=== PATIENT | female | born 1995 | race African-American/Black ===

== ENCOUNTER → 2016-11-19 | Outpatient (REF) | payer OTHER | LOC: M LAB REF 16:27 | PROVIDERS: ATTEND Physician Assistant | DX: J02.9 Acute pharyngitis, unspecified (principal) ==

== ENCOUNTER → 2016-12-03 | Outpatient (REF) | payer SELFPAY | LOC: M LAB REF 14:56 | PROVIDERS: ATTEND Physician Assistant | DX: Z00.00 Encounter for general adult medical examination without abnormal findings (principal) ==

== ENCOUNTER 2017-09-04 08:41 | Emergency (ER) | payer MEDICAID, SELFPAY ==
[~2017-09-04] VITALS: Ht 162.6 cm; Wt 57.9 kg
[2017-09-04 08:41] VITALS: BP 128/62
[2017-09-04] MEDS ORDERED: [UNRECOGNIZED DRUG - CODE] SL (08:51)
[2017-09-04] MEDS ORDERED: MUCI600T37 PO (09:54)
[2017-09-04] MEDS ORDERED: MUCI1TAB16 PO (09:54)
== END 2017-09-04 10:13 | disposition home or self-care (01) ==
LOC: M ED 08:41
DX: J06.9 Acute upper respiratory infection, unspecified (principal); N91.5 Oligomenorrhea, unspecified; Z98.890 Other specified postprocedural states; Z92.0 Personal history of contraception

== ENCOUNTER 2017-09-22 13:34 | Emergency (ER) | payer OTHER, SELFPAY ==
[~2017-09-22] VITALS: Ht 162.6 cm; Wt 54.5 kg
[~2017-09-22 13:34] MED LIST: MUCI1TAB16 PO; MUCI600T37 PO; [UNRECOGNIZED DRUG - CODE] SL
[2017-09-22 14:07] LABS: MEAN CORPUSCULAR HEMOGLOBIN 29.3 pg (27.0-33.0); MEAN CORPUSCULAR HGB CONC 33.2 g/dl (32.0-36.5); MEAN CORPUSCULAR VOLUME 88.2 fl (80.0-96.0); PLATELET COUNT, AUTOMATED 242 10^3/uL (150-450); RED CELL DISTRIBUTION WIDTH 11.8 % (11.5-14.5); WHITE BLOOD COUNT 6.8 10^3/uL (4.0-10.0)
--- NOTE | 2017-09-22 14:57 | REP ---
First trimester OB ultrasound and endovaginal probe OB ultrasound: 09/22/2017. Clinical history: First trimester , bleeding. I do not have hCG results available. Transabdominal and endovaginal probes were utilized. Bladder was empty and cannot be measured. Uterus anteverted measuring 8.7 x 4.5 x 5.8 cm. Both transabdominal and endovaginal probes show a suspected gestational sac by mean sac diameter she would be 5 weeks 4 days. There is no yolk sac or pole visible. I do not see a definite subchorionic bleed. Right ovary is 2.9 x 2.5 x 1.4 cm with a 1.6 x 1.5 cm complex follicle or hemorrhagic corpus luteum. Doppler tracing shows resistive index 0.55. The left ovary is 2.7 x 1.9 x 1.8 cm. It has a Doppler tracing with resistive index of 0.46 and no mass. There is no free fluid in the pelvis. Impression: 1. A possible gestational sac seen in the fundus and by measurement it would be 5 weeks 4 days gestational age. There is no yolk sac or pole visible at this time. No subchorionic bleed. No free fluid. 2. Findings may reflect a blighted ovum, early IUP where the fetus may not yet be visible and the possibility of an ectopic cannot be entirely excluded. 3. There is a complex or hemorrhagic follicle/hemorrhagic corpus luteum cyst on the right 1.6 x 1.5 cm. 4. Both ovaries show Doppler flow, no torsion. Signed by Juvencio Grimes MD 09/22/2017 07:41 P
[2017-09-22 15:50] VITALS: BP 101/66
== END 2017-09-22 15:54 | disposition home or self-care (01) ==
LOC: M ED 13:34
DX: O20.0 Threatened abortion (principal); Z3A.01 Less than 8 weeks gestation of pregnancy

== ENCOUNTER 2017-09-24 10:00 | Emergency (ER) | payer MEDICAID, OTHER, SELFPAY ==
[~2017-09-24] VITALS: Ht 162.6 cm; Wt 55.5 kg
[2017-09-24 10:01] VITALS: BP 110/59
== END 2017-09-24 11:50 | disposition home or self-care (01) ==
LOC: M ED 10:00
DX: O26.891 Other specified pregnancy related conditions, first trimester (principal); Z3A.01 Less than 8 weeks gestation of pregnancy

== ENCOUNTER → 2018-05-12 | Outpatient (REF) | payer OTHER, SELFPAY ==
[2018-05-12 18:43] LABS: CHLAMYDIA DNA AMPLIFICATION NEGATIVE (NEGATIVE); GC DNA AMPLIFICATION NEGATIVE (NEGATIVE)
== END ==
LOC: M SFHCLERA 13:41
DX: Z20.2 Contact with and (suspected) exposure to infections with a predominantly sexual mode of transmission (principal)
CPT/HCPCS: 87086

== ENCOUNTER → 2019-02-07 | Outpatient (REF) | payer OTHER ==
[2019-02-07 19:27] LABS: CHLAMYDIA DNA AMPLIFICATION NEGATIVE (NEGATIVE); GC DNA AMPLIFICATION NEGATIVE (NEGATIVE)
== END ==
LOC: M SFHCLERA 11:30
PROVIDERS: ATTEND Nurse Practitioner Family
DX: R39.9 Unspecified symptoms and signs involving the genitourinary system (principal)

== ENCOUNTER 2019-02-27 20:08 | Emergency (ER) | payer SELFPAY ==
[~2019-02-27] VITALS: Ht 162.6 cm; Wt 59.1 kg
[2019-02-27 20:08] VITALS: BP 107/71
[2019-02-27 21:30] LABS: BASO % 0.8 % (0.0-1.0); EOS # 0.1 10^3/uL (0.0-0.50); EOS % 1.2 % (0.0-3.0); HEMATOCRIT 38.3 % (36.0-47.0); HEMOGLOBIN 12.4 g/dl (12.0-15.5); LYMPH # 1.5 10^3/uL (1.5-6.5); LYMPH % 30.5 % (24.0-44.0); MEAN CORPUSCULAR HEMOGLOBIN 28.7 pg (27.0-33.0); MEAN CORPUSCULAR HGB CONC 32.4 g/dl (32.0-36.5); MEAN CORPUSCULAR VOLUME 88.7 fl (80.0-96.0); MONO # 0.5 10^3/uL (0.0-0.8); NEUTROPHILS # 2.9 10^3/uL (1.8-7.7); NEUTROPHILS % 57.3 % (36.0-66.0); PLATELET COUNT, AUTOMATED 208 10^3/uL (150-450); RED BLOOD COUNT 4.32 10^6/uL (4.00-5.40)
[2019-02-27 21:49] LABS: BLOOD UREA NITROGEN 12 MG/DL (7-18); CALCIUM LEVEL 9.1 MG/DL (8.5-10.1); CARBON DIOXIDE LEVEL 28 MEQ/L (21-32); CHLORIDE LEVEL 107 MEQ/L (98-107); GLOMERULAR FILTRATION RATE > 60.0 (>60); GLUCOSE, FASTING 87 MG/DL (70-100); POTASSIUM SERUM 3.6 MEQ/L (3.5-5.1); SODIUM LEVEL 140 MEQ/L (136-145)
[2019-02-27 23:59] LABS: CHLAMYDIA DNA AMPLIFICATION NEGATIVE (NEGATIVE); GC DNA AMPLIFICATION NEGATIVE (NEGATIVE)
[2019-02-28] MEDS ORDERED: FLAG500T PO (00:56)
--- NOTE | 2019-02-28 00:56 | REPVR ---
EXAM: US First Trimester, Transabdominal EXAM DATE/TIME: 02/27/2019 12:08 AM CLINICAL HISTORY: 24 years old, female; Signs and symptoms; Lmp or gestational age (in weeks): Lmp4/11/05; Antepartum complications; Bleeding; ; Additional info: Pelvic pain; Vaginal bleeding TECHNIQUE: Imaging protocol: Real-time transabdominal obstetrical ultrasound of the maternal pelvis and a first trimester , less than 14 weeks 0 days, with image documentation. COMPARISON: No relevant prior studies available. FINDINGS: Uterus measures 9 x 4.5 x 5.5 cm. No evidence of gestational sac within the endometrial cavity. Endometrial stripe is regular in appearance and measures 10 mm. Right ovary appears normal, measuring 2.7 x 1.8 x 2.0 cm. Doppler demonstrates normal vascular flow. Left ovary appears normal, measuring 3.8 x 1.9 x 2.5 cm. Doppler demonstrates normal vascular flow. No abnormal volume of free pelvic fluid. IMPRESSION: No evidence of intrauterine . No ancillary evidence of ectopic , although ectopic cannot be excluded. Differential diagnosis includes spontaneous , very early intrauterine , or ectopic . Electronically signed by: Lawrence Pascal On 02/28/2019 00:55:57 AM
== END 2019-02-28 01:14 | disposition home or self-care (01) ==
LOC: M ED 20:08
DX: O20.0 Threatened abortion (principal); O23.599 Infection of other part of genital tract in pregnancy, unspecified trimester; Z77.098 Contact with and (suspected) exposure to other hazardous, chiefly nonmedicinal, chemicals; Z3A.00 Weeks of gestation of pregnancy not specified

== ENCOUNTER 2019-06-29 16:17 | Day surgery (SDC) | payer MEDICAID, SELFPAY ==
[~2019-06-29] VITALS: Ht 160 cm; Wt 57.8 kg
[~2019-06-29 16:17] MED LIST changes: +FLAG500T PO
[2019-06-29] MEDS ORDERED: ACET160S3 PO (16:22)
[2019-06-29 17:18] LABS: BASO % 0.4 % (0.0-1.0); EOS % 0.5 % (0.0-3.0); HEMATOCRIT 33.4 % (36.0-47.0); LYMPH # 1.4 10^3/uL (1.5-5.0); LYMPH % 18.5 % (24.0-44.0); MEAN CORPUSCULAR HEMOGLOBIN 30.4 pg (27.0-33.0); MEAN CORPUSCULAR HGB CONC 32.9 g/dl (32.0-36.5); MEAN CORPUSCULAR VOLUME 92.3 fl (80.0-96.0); MONO # 0.5 10^3/uL (0.0-0.8); NEUTROPHILS # 5.6 10^3/uL (1.5-8.5); NEUTROPHILS % 74.5 % (36.0-66.0); PLATELET COUNT, AUTOMATED 228 10^3/uL (150-450); RED BLOOD COUNT 3.62 10^6/uL (4.00-5.40); WHITE BLOOD COUNT 7.5 10^3/uL (4.0-10.0)
[2019-06-29 17:22] LABS: BLOOD UREA NITROGEN 12 MG/DL (7-18); CALCIUM LEVEL 8.9 MG/DL (8.5-10.1); CARBON DIOXIDE LEVEL 26 MEQ/L (21-32); CHLORIDE LEVEL 107 MEQ/L (98-107); CREATININE FOR GFR 0.89 MG/DL (0.55-1.30); GLOMERULAR FILTRATION RATE > 60.0 (>60); GLUCOSE, FASTING 93 MG/DL (70-100); POTASSIUM SERUM 4.1 MEQ/L (3.5-5.1); SODIUM LEVEL 142 MEQ/L (136-145)
--- NOTE | 2019-06-29 18:45 | REPVR ---
EXAM: US Pelvis Complete, Transabdominal and US Pelvis, Transvaginal and US Duplex Artery and Vein, Ovaries, Complete EXAM DATE/TIME: 06/29/2019 5:56 PM CLINICAL HISTORY: 24 years old, female; Abdominal pain and pelvic pain; Lower abdomen; Additional info: Abdominal/pelvic pain. History of recent . Heavy vaginal bleeding starting today with pain. TECHNIQUE: Imaging protocol: Real-time transabdominal and transvaginal pelvic ultrasound (complete) with image documentation. Transvaginal imaging was used for better evaluation of the endometrium and adnexa. Real-time duplex ultrasound scan of the arterial and venous flow of the ovaries with B-mode, color Doppler flow and spectral waveform analysis. COMPARISON: No relevant prior studies available. FINDINGS: Uterus/cervix: The uterus measures 10.1 x 4.6 x 5.2 cm. The endometrium is thickened and heterogeneous measuring up to 1.9 cm in the fundus. Suggestion of cystic changes in the endometrium the level of the uterine body. The heterogeneous endometrial contents appear partially vascular in the fundus with color Doppler interrogation, findings concerning for retained products of conception. Right adnexa: The right ovary measures 2.8 x 2.9 x 1.6 cm. No mass or dominant cyst. Normal color and spectral arterial and venous blood flow. Left adnexa: The left ovary measures 1.8 x 2.6 x 1.9 cm. There are small follicles. No mass or dominant cyst. Normal color and spectral arterial and venous blood flow. Free fluid: None. Bladder: Normal. IMPRESSION: Significantly abnormal appearance of the endometrium which appears thickened and partially hypervascular, findings most likely represent retained products of conception. Electronically signed by: Mounika Eller On 06/29/2019 18:45:21 PM
[2019-06-29 19:46] LABS: HCG, SERUM QUANTITATIVE 2599 MIU/ML
[2019-06-29] MEDS ORDERED: PATIENT COMMENTS (20:42)
[2019-06-29] MEDS ORDERED: TGTSUS2 PO (20:42)
[2019-06-29] MEDS ORDERED: DOXYCYCLINE HYCLATE 100 MG TAB As Ordered ONE ×2 (20:50→21:42)
[2019-06-29] MEDS ORDERED: LIDOCAINE 1% SDV INJ 30 ML VIAL As Ordered ONE (20:59)
[2019-06-29] MEDS ORDERED: dexameTHASONE 4 MG/ML 1ML VIAL (J1100) As Ordered ONE (21:09)
[2019-06-29] MEDS ORDERED: ONDANSETRON 4MG/2ML VIAL (J2405) As Ordered ONE (21:09)
[2019-06-29] MEDS ORDERED: MIDAZOLAM INJ 2 MG/2 ML VIAL (J2250) As Ordered ONE (21:09)
[2019-06-29] MEDS ORDERED: fentaNYL 100 MCG/2 ML INJECTION (J3010) As Ordered ONE (21:09)
[2019-06-29] MEDS ORDERED: KETOROLAC 60 MG/2 ML VIAL (J1885) As Ordered ONE (21:09)
[2019-06-29] MEDS ORDERED: LIDOCAINE 2% INJ 100 MG/5 ML SDV (FOR ANES.) As Ordered ONE (21:09)
[2019-06-29] MEDS ORDERED: PHENYLephrine HCL 500 MCG/5 ML (100MCG/ML) SYRINGE (J2370) As Ordered ONE (21:29)
[2019-06-29] MEDS ORDERED: DOXYCYCLINE HYCLATE 100 MG TAB PO ONE (22:00)
--- NOTE | 2019-06-29 22:54 | RO ---
DATE OF PROCEDURE: 06/29/2019 PREOPERATIVE DIAGNOSIS: Retained products of conception. POSTOPERATIVE DIAGNOSIS: Retained products of conception. PROCEDURE PERFORMED: Dilation and curettage, suction curettage. SURGEON: Daily Calderon MD [place] TEACHER: None. ANESTHESIA: IV sedation with paracervical block and 10 mL of 1% lidocaine. ESTIMATED BLOOD LOSS: 25 mL. URINE OUTPUT: Urine output was not obtained. PREOPERATIVE ANTIBIOTICS: The patient was given 200 mg of doxycycline orally. INTRAVENOUS FLUIDS: 600 mL of lactated Ringer's solution. SPECIMENS: Products of conception INDICATION FOR OPERATION: This patient is a 24-year-old 2, para 1 who presented approximately 4 weeks following a therapeutic . She reports being seen in [facility] in [place] where she received a medical at 8 weeks. She reports passing large amounts of tissue and after several days, her bleeding had ceased until today. She started having heavy bleeding and discomfort. She presented to emergency department at [facility] and had an evaluation and ultrasound showing findings which were consistent with products of conception. She was actively bleeding and had large amount of blood clots on her examination. The patient was counseled for concerns for retained products of conception and was consented for dilation and curettage. The risks of the procedure were reviewed, all questions were answered and patient in agreement to proceed with surgery. DESCRIPTION OF OPERATION: After informed consent was obtained and written consent was reviewed, the patient was brought to operating room where IV sedation was administered. She was then placed in lithotomy position and was prepped and draped in a normal sterile fashion. Time-out in the operating room was then performed identifying the patient, procedure to be performed as well as drug allergies. A bivalve speculum was placed revealing a dilated cervix. A paracervical block was then performed using 1% lidocaine, a total of 10 mL. A single-tooth tenaculum then placed on the anterior lip of the cervix, and the cervix was further dilated using Hanks dilator. She was sounded to 8 cm. Using a #9 curved curette, it was advanced through the cervical os to the level of the fundus and the uterus was curetted in a 360-degree fashion with a large amount of tissue obtained. This was repeated two additional times with the last pass only productive of a small amount of blood. A sharp curette was then advanced to the cervical os to the level of the fundus, and the uterus was curetted in a 360-degree fashion: The tissue was then obtained and sent to pathology for further evaluation. The single-tooth tenaculum was then removed. Tenaculum sites were noted be hemostatic. Elton speculum was then removed. The patient was then taken out of the lithotomy position, taken to recovery in stable condition. Counts were correct. MTDD
[2019-06-29 23:08] VITALS: BP 103/58
== END 2019-06-29 23:11 | disposition home or self-care (01) ==
LOC: M ED 16:17 → M SDC 20:28
PROVIDERS: ATTEND Obstetrics & Gynecology
DX: O73.1 Retained portions of placenta and membranes, without hemorrhage (principal); F17.210 Nicotine dependence, cigarettes, uncomplicated; D64.9 Anemia, unspecified
CPT/HCPCS: 59160; 76830; 76856; 80048; 84702; 85025; 86850; 86900; 86901; 88305; 93976; 99284; J1100; J1885; J2250; J2370; J2405; J3010

== ENCOUNTER 2019-11-05 00:28 | Emergency (ER) | payer MEDICAID, OTHER ==
[~2019-11-05] VITALS: Ht 162.6 cm; Wt 59.1 kg
[~2019-11-05 00:28] MED LIST changes: +ACET160S3 PO; +PATIENT COMMENTS; +TGTSUS2 PO
[2019-11-05] MEDS ORDERED: ACETAMINOPHEN 325 MG TAB PO ONE (01:00)
[2019-11-05] MEDS ORDERED: NS 1,000 ML IV ONE (01:15)
[2019-11-05] MEDS ORDERED: ALBUTEROL SULFATE 2.5 MG/0.5 ML INH NEB SOLN NEB ONE (01:15)
[2019-11-05] MEDS ORDERED: ONDANSETRON 4MG/2ML VIAL (J2405) IV ONE (01:15)
[2019-11-05] MEDS ORDERED: KETOROLAC 30 MG/ML VIAL (J1885) IV ONE (01:15)
[2019-11-05 01:34] LABS: INFLUENZA A AMPLIFICATION NEGATIVE (NEGATIVE); INFLUENZA B AMPLIFICATION POSITIVE (NEGATIVE)
[2019-11-05 01:39] LABS: BASO % 0.4 % (0.0-1.0); HEMOGLOBIN 8.8 g/dl (12.0-15.5); LYMPH # 0.7 10^3/uL (1.5-5.0); LYMPH % 27.7 % (24.0-44.0); MEAN CORPUSCULAR HEMOGLOBIN 20.2 pg (27.0-33.0); MEAN CORPUSCULAR HGB CONC 28.4 g/dl (32.0-36.5); MEAN CORPUSCULAR VOLUME 71.1 fl (80.0-96.0); MONO # 0.3 10^3/uL (0.0-0.8); MONO % 10.8 % (0.0-5.0); NEUTROPHILS # 1.6 10^3/uL (1.5-8.5); NEUTROPHILS % 61.1 % (36.0-66.0); PLATELET COUNT, AUTOMATED 160 10^3/uL (150-450); RED BLOOD COUNT 4.36 10^6/uL (4.00-5.40); WHITE BLOOD COUNT 2.6 10^3/uL (4.0-10.0)
[2019-11-05 01:43] LABS: APPEARANCE, URINE HAZY (CLEAR); BACTERIA, URINE AUTO NEGATIVE (NEGATIVE); BILIRUBIN, URINE AUTO NEGATIVE (NEGATIVE); BLOOD, URINE BLOOD 1+ (NEGATIVE); COLOR, URINE YELLOW (YELLOW); GLUCOSE, URINE (UA) AUTO NEGATIVE (NEGATIVE); KETONE, URINE AUTO TRACE mg/dL (NEGATIVE); LEUKOCYTE ESTERASE, URINE AUTO NEGATIVE (NEGATIVE); NITRITE, URINE AUTO NEGATIVE (NEGATIVE); PROTEIN, URINE AUTO NEGATIVE (NEGATIVE); RBC, URINE AUTO 2 /HPF (0-3); SPECIFIC GRAVITY URINE AUTO 1.024 (1.002-1.035); SQUAMOUS EPITHELIAL CELL UR AU 10 /HPF (0-6); UROBILINOGEN, URINE AUTO 0.2 mg/dL (0.0-2.0); WBC, URINE AUTO 2 /HPF (0-3)
[2019-11-05 02:06] LABS: ALBUMIN 3.7 GM/DL (3.2-5.2); BILIRUBIN,DIRECT 0.2 MG/DL (0.0-0.2); BILIRUBIN,TOTAL 0.3 MG/DL (0.2-1.0); TOTAL PROTEIN 7.1 GM/DL (6.4-8.2)
[2019-11-05] MEDS ORDERED: PROAAER10 INH (02:37)
[2019-11-05] MEDS ORDERED: TESS100C PO (02:37)
[2019-11-05 02:57] VITALS: BP 99/53
--- NOTE | 2019-11-05 08:27 | REP ---
Chest x-ray: Two views. History: Cough and fever. Body aches. Comparison study: May 05, 2016. Findings: The lungs are well inflated and clear. Pleural angles are sharp. Heart size is normal. Pulmonary vasculature is not increased. No significant bony abnormality is seen. Nipple and umbilical jewelry are noted overlying the chest and abdomen. There is hair or clothing artifact overlying the right shoulder on the frontal view. No significant bony abnormality. Impression: Negative chest x-ray. Electronically Signed by Chau Ingram MD 11/05/2019 08:18 A
== END 2019-11-05 02:59 | disposition home or self-care (01) ==
LOC: M ED 00:28
DX: J10.1 Influenza due to other identified influenza virus with other respiratory manifestations (principal); R50.9 Fever, unspecified; R05 Cough; M79.10 Myalgia, unspecified site; Z20.89 Contact with and (suspected) exposure to other communicable diseases
CPT/HCPCS: 71046; 80047; 80076; 81001; 84702; 85025; 87502; 96361; 96374; 96375; 99284; J1885; J2405

== ENCOUNTER → 2019-12-22 | Outpatient (REF) | payer OTHER ==
[~2019-12-22] MED LIST changes: +PROAAER10 INH; +TESS100C PO
[2019-12-23 00:41] LABS: CHLAMYDIA DNA AMPLIFICATION NEGATIVE (NEGATIVE); GC DNA AMPLIFICATION NEGATIVE (NEGATIVE)
== END ==
LOC: M SFHCLERA 18:10
PROVIDERS: ATTEND Physician Assistant
DX: N89.8 Other specified noninflammatory disorders of vagina (principal)

== ENCOUNTER → 2020-12-10 | Outpatient (REF) | payer OTHER ==
[2020-12-10 16:00] LABS: HEMOGLOBIN 12.9 g/dl (12.0-15.5); MEAN CORPUSCULAR HEMOGLOBIN 30.1 pg (27.0-33.0); MEAN CORPUSCULAR HGB CONC 32.3 g/dl (32.0-36.5); MEAN CORPUSCULAR VOLUME 93.2 fl (80.0-96.0); PLATELET COUNT, AUTOMATED 208 10^3/uL (150-450); RED BLOOD COUNT 4.29 10^6/uL (4.00-5.40); WHITE BLOOD COUNT 5.8 10^3/uL (4.0-10.0)
[2020-12-10 17:24] LABS: HEPATITIS C VIRUS ABY INDEX < 0.0 INDEX (<0.8); HIV 1&2 SCREEN CENTAUR NEGATIVE (NEGATIVE)
[2020-12-10 17:30] LABS: CHLAMYDIA DNA AMPLIFICATION NEGATIVE (NEGATIVE); GC DNA AMPLIFICATION NEGATIVE (NEGATIVE)
== END ==
LOC: M PLALAB 11:55
PROVIDERS: ATTEND Obstetrics & Gynecology
DX: Z3A.01 Less than 8 weeks gestation of pregnancy (principal)

== ENCOUNTER 2021-01-27 13:55 | Emergency (ER) | payer OTHER ==
[~2021-01-27] VITALS: Ht 162.6 cm; Wt 63.7 kg
[2021-01-27 13:56] VITALS: BP 105/58
== END 2021-01-27 18:43 | disposition left against medical advice (07) ==
LOC: M ED 13:55
DX: Z53.21 Procedure and treatment not carried out due to patient leaving prior to being seen by health care provider (principal)

== ENCOUNTER → 2021-02-06 | Outpatient (CLI) | payer OTHER | LOC: M PLALAB 13:16 | PROVIDERS: ATTEND Advanced Practice Midwife | DX: Z34.82 Encounter for supervision of other normal pregnancy, second trimester (principal) ==

== ENCOUNTER → 2021-03-06 | Outpatient (CLI) | payer OTHER ==
--- NOTE | 2021-03-06 10:41 | REP ---
INDICATION: ANATOMY COMPARISON: None. TECHNIQUE: Transabdominal obstetrical ultrasound with color Doppler evaluation. FINDINGS: Examination demonstrates a single live intrauterine in breech presentation. motion is identified by technologist. Placenta is noted anterior and grade 1 without evidence for placenta previa or abruption. Amniotic fluid volume is normal. Cervix measures 3.7 cm in length and appears closed.. Gestational age by LMP 18 weeks 6 days with BOB 08/01/2021. Gestational age by current measurements 19 weeks 4 days with BOB 07/27/2021. FHR equals 156 beats per minute. Estimated weight 288 grams (75thpercentile). Anatomical assessment demonstrates normal structures including cranium, choroid plexus, cavum, cerebellum/posterior fossa, facial features, lungs, four-chamber heart/ventricular outflow tracts, diaphragm, stomach, cord insertion/three-vessel cord, kidneys/bladder, spine, and extremities. IMPRESSION: Single live intrauterine in breech presentation demonstrating appropriate estimated weight. Anatomical assessment is complete and normal. No gross abnormalities are identified. <Electronically signed by Sukhwinder Wayne > 03/06/21 1037
== END ==
LOC: M WHC 08:54
PROVIDERS: ATTEND Advanced Practice Midwife
DX: O32.1XX0 Maternal care for breech presentation, not applicable or unspecified (principal); Z36.89 Encounter for other specified antenatal screening; Z3A.18 18 weeks gestation of pregnancy

== ENCOUNTER 2021-03-31 09:11 | Emergency (ER) | payer OTHER ==
[~2021-03-31] VITALS: Ht 162.6 cm; Wt 66.7 kg
[2021-03-31] MEDS ORDERED: COMBIVENT RESPIMAT 100-20MCG INHALER 4GM INH ONE (09:35)
[2021-03-31 09:57] LABS: BASO % 0.2 % (0.0-1.0); EOS # 0.1 10^3/uL (0.0-0.5); EOS % 1.2 % (0.0-3.0); HEMATOCRIT 33.4 % (36.0-47.0); HEMOGLOBIN 10.9 g/dl (12.0-15.5); LYMPH # 1.4 10^3/uL (1.5-5.0); LYMPH % 16.4 % (24.0-44.0); MEAN CORPUSCULAR HEMOGLOBIN 30.6 pg (27.0-33.0); MEAN CORPUSCULAR HGB CONC 32.6 g/dl (32.0-36.5); MEAN CORPUSCULAR VOLUME 93.8 fl (80.0-96.0); MONO # 0.6 10^3/uL (0.0-0.8); MONO % 7.5 % (2.0-8.0); NEUTROPHILS # 6.2 10^3/uL (1.5-8.5); NEUTROPHILS % 74.2 % (36.0-66.0); PLATELET COUNT, AUTOMATED 198 10^3/uL (150-450); RED BLOOD COUNT 3.56 10^6/uL (4.00-5.40); WHITE BLOOD COUNT 8.4 10^3/uL (4.0-10.0)
[2021-03-31 10:36] LABS: ALT/SGPT 26 U/L (12-78); BILIRUBIN,DIRECT 0.1 MG/DL (0.0-0.2); BILIRUBIN,TOTAL 0.4 MG/DL (0.2-1.0); BLOOD UREA NITROGEN 6 MG/DL (7-18); CALCIUM LEVEL 8.7 MG/DL (8.5-10.1); CARBON DIOXIDE LEVEL 25 MEQ/L (21-32); CHLORIDE LEVEL 109 MEQ/L (98-107); CK-MB VALUE MASS < 1.0 NG/ML (<3.6); CPK CREATINE PHOSPHOKINASE 59 U/L (26-192); GLOMERULAR FILTRATION RATE > 60.0 (>60); GLUCOSE, FASTING 74 MG/DL (70-100); MB/CK RELATIVE INDEX 1.69 (< OR =4); NT-PRO BNP 49 PG/ML (<125); POTASSIUM SERUM 3.6 MEQ/L (3.5-5.1); SODIUM LEVEL 141 MEQ/L (136-145); TOTAL PROTEIN 6.6 GM/DL (6.4-8.2); TROPONIN I < 0.02 NG/ML (< 0.10)
--- NOTE | 2021-03-31 10:43 | REP ---
INDICATION: DYSPNEA/COUGH, patient is 22 wk COMPARISON: 11/05/2019 TECHNIQUE: Portable AP view of the chest FINDINGS: The mediastinum and cardiac silhouette are stable and within normal limits for portable technique. Current examination demonstrates elevation to the left hemidiaphragm which is nonspecific and of uncertain etiology. The lung franks are clear without acute consolidation, effusion, or pneumothorax. Skeletal structures are intact. IMPRESSION: 1. Nonspecific elevation to the left hemidiaphragm. 2. No further acute mediastinal or pleuroparenchymal process appreciated. <Electronically signed by Sukhwinder Wayne > 03/31/21 1032
[2021-03-31] MEDS ORDERED: MULTTAB20 PO (11:36)
[2021-03-31 12:45] VITALS: BP 94/52
[2021-03-31] MEDS ORDERED: ACETAMINOPHEN *IV* 1,000 MG in IV 1 EA IV ONE (13:15)
[2021-03-31] MEDS ORDERED: predniSONE 20 MG TAB PO ONE (13:15)
[2021-03-31] MEDS ORDERED: PROV108A INH (13:28)
[2021-03-31] MEDS ORDERED: PRED20TA PO (13:28)
--- NOTE | 2021-03-31 17:02 | ECGEPIP ---
[facility] - ED Test Date: 2021-03-31 Pat Name: ALEJANDRO REZA Department: Room: - Gender: Female Lifestyle Coordinator: : 1995 Requested By: BESS Goncalves Order Number: [id number] Reading MD: Gina Reyes Measurements Intervals [place] Rate: 101 P: 42 NH: 172 QRS: 12 QRSD: 72 T: 35 QT: 340 QTc: 440 Interpretive Statements Sinus tachycardia right ventricular conduction delay increased rate 05/05/16 Electronically Signed on 03-31-2021 17:01:58 EDT by Gina Reyes
== END 2021-03-31 14:04 | disposition home or self-care (01) ==
LOC: M ED 09:11
DX: O99.512 Diseases of the respiratory system complicating pregnancy, second trimester (principal); O99.412 Diseases of the circulatory system complicating pregnancy, second trimester; Z3A.22 22 weeks gestation of pregnancy
CPT/HCPCS: 71045; 80048; 80076; 82550; 82553; 83880; 84443; 85025; 87040; 87798; 93005; 93041; 94640; 94760; 96365; 99285; J0131; J7512

== ENCOUNTER 2021-05-03 15:58 | Outpatient (CLI) | payer OTHER ==
[~2021-05-03] VITALS: Ht 160 cm; Wt 66.8 kg
[~2021-05-03 15:58] MED LIST changes: +MULTTAB20 PO; +PRED20TA PO; +PROV108A INH
[2021-05-03 16:17] VITALS: BP 109/67
--- NOTE | 2021-05-03 18:51 | IPNPDOC ---
Obstetrical Progress Note Date of Service May 03, 2021 Subjective Subjective/HPI: 26-year-old at 27+1 weeks' gestation. Final EDC of 08/01/2021 by LMP consistent with a first trimester ultrasound. Presents today complaining of uterine cramping/contraction/pelvic discomfort. Denies any vaginal bleeding or loss of fluid. Reports trying to get Doptones at home with her own machine and she was unsuccessful. Denies headache, visual changes, shortness of breath, chest pain. course essentially uncomplicated PMH/SH: Being worked up for heart palpitations, D&C Objective: Normotensive. Normal heart rate. Afebrile Abdomen soft, nontender, nondistended. Uterine fundus , nontender. Extremities nonedematous, nontender Pelvic: Sterile speculum exam reveals no pooling, no vaginal bleeding, no abnormal discharge or foul odor. Negative nitrazine, negative ferning. Sterile vaginal/cervical exam reveals a closed long thick cervix. Transvaginal ultrasound, limited: Cervical length 3.4 cm. No dynamic changes/funneling. fibronectin was negative MVP greater than 2 cm EFM: Reactive, moderate variability, no decelerations [place]: irregular contractions Assessment/plan: 26 year-old at 27+1 weeks' gestation. No evidence of premature ruptured membranes, active labor, advanced cervical dilation, or shortened cervical length. Negative fibronectin. Current maternal and condition is reassuring. -Routine precautions were reviewed -Follow-up in the office as scheduled Objective Vital Signs Date Time Temp Pulse Resp B/P (MAP) Pulse Ox O2 Delivery O2 Flow Rate FiO2 05/03/21 16:17 97.9 87 16 109/67 (81) THEODORA SLAUGHTER DO May 03, 2021 18:51
== END 2021-05-03 18:15 | disposition home or self-care (01) ==
LOC: M LDO 15:58
PROVIDERS: ATTEND Obstetrics & Gynecology
DX: O47.02 False labor before 37 completed weeks of gestation, second trimester (principal); Z3A.27 27 weeks gestation of pregnancy